=== PATIENT | female | born 1990 | race Caucasian/White ===

== ENCOUNTER 2017-07-26 18:52 | Emergency (ER) | payer MEDICAID, OTHER ==
[2017-07-26] MEDS ORDERED: Ketorolac INJ* 60 MG/2 ML VIAL IM ONE (19:23)
[2017-07-26] MEDS ORDERED: oxyCODONE/Acetamin 5/325 MG* TAB PO ONE (19:23)
--- NOTE | 2017-07-26 20:14 | RAD ---
INDICATION: Low back and left hip pain after fall down the stairs COMPARISON: Similar radiograph November 01, 2015 TECHNIQUE: 3 views of the left hip were obtained. FINDINGS: The visualized bones of the left hip are well-corticated and properly aligned. The joint spaces are normal. There is no radiographic evidence of acute fracture or dislocation. IMPRESSION: Normal radiograph of the left hip. If the patient's symptoms persist follow-up imaging is recommended.
--- NOTE | 2017-07-26 20:15 | RAD ---
INDICATION: Low back pain after a fall COMPARISON: None. TECHNIQUE: 5 views of the lumbar spine were obtained. FINDINGS: The vertebra are in normal alignment. No fracture is seen. Disc spaces appear maintained. . IMPRESSION: No evidence of fracture or subluxation.
--- NOTE | 2017-07-26 20:36 | ED ---
Giacomo Perez Thomas, scribed for Grayson Gould MD on 07/26/17 at 1936 . Lower Extremity - HPI Summary HPI Summary: The pt is a 27 y/o F presenting to the ED c/o L hip and midline lower back pain s/p falling down the stairs one week ago. The pain is constant. The pain is rated 7/10. The pain is aggravated by ambulation and palpation. It is alleviated by nothing. 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 Pt denies bladder incontinence. - History of Current Complaint Chief Complaint: EDHipPelvisInjury Stated Complaint: FALL/LT HIP/LOWER BACK PAIN Time Seen by Provider: 07/26/17 19:09 Hx Obtained From: Patient Mechanism Of Injury: Other - Fall down stairs Onset/Duration: Weeks - 1 Pain Intensity: 8 Pain Scale Used: 0-10 Numeric Timing: Constant Location: Is Discrete @ - L hip, midline lower back Associated Signs And Symptoms: Negative: Other - bladder incontinence Aggravating Factor(s): Ambulation, Other - Palpation Alleviating Factor(s): Nothing - Allergies/Home Medications Allergies/Adverse Reactions: Allergies Allergy/AdvReac Type Severity Reaction Status Date / Time Adhesive Tape Allergy Rash Verified 07/26/17 19:00 PMH/Surg Hx/FS Hx/Imm Hx Previously Healthy: No Endocrine/Hematology History: Denies: Hx Diabetes Cardiovascular History: Denies: Hx Congestive Heart Failure GI History: Denies: Other GI Disorders History: Reports: Hx Kidney Infection Denies: Hx Renal Disease, Other Problems/Disorders Musculoskeletal History: Reports: Hx Arthritis, Hx Back Problems, Other Musculoskeletal History - chronic pain Sensory History: Reports: Hx Contacts or Glasses Opthamlomology History: Reports: Hx Contacts or Glasses Neurological History: Reports: Other Neuro Impairments/Disorders - H/O SCIATICA Psychiatric History: Reports: Hx Anxiety, Hx Eating Disorder - Anorexia, Hx Depression, Hx of Violent Episodes Against Others, Other Psychiatric Issues/ Disorders - ADD - Immunization History Date of Tetanus Vaccine: Up to date Date of Influenza Vaccine: None Infectious Disease History: No Infectious Disease History: Denies: Traveled Outside the [place] in Last 30 Days - Family History Known Family History: Negative: Seizure Disorder - Social History Alcohol Use: None Hx Substance Use: No Substance Use Type: Reports: Marijuana Hx Tobacco Use: Yes Smoking Status (MU): Light Every Day Tobacco Smoker Type: Cigarettes Have You Smoked in the Last Year: Yes Review of Systems Negative: incontinence Positive: Other - L hip, midline lower back pain All Other Systems Reviewed And Are Negative: Yes Physical Exam - Summary Physical Exam Summary: VITAL SIGNS: Reviewed. GENERAL: Patient is a well-developed and nourished female who is lying comfortable in the stretcher. Patient is not in any acute respiratory distress. HEAD AND FACE: No signs of trauma. No ecchymosis, hematomas or skull depressions. No sinus tenderness. EYES: PERRLA, EOMI x 2, No injected conjunctiva, no nystagmus. EARS: Hearing grossly intact. Ear canals and tympanic membranes are within normal limits. MOUTH: Oropharynx within normal limits. NECK: Supple, trachea is midline, no adenopathy, no JVD, no carotid bruit, no c- spine tenderness, neck with full ROM. CHEST: Symmetric, no tenderness at palpation LUNGS: Clear to auscultation bilaterally. No wheezing or crackles. CVS: Regular rate and rhythm, S1 and S2 present, no murmurs or gallops appreciated. ABDOMEN: Soft, non-tender. No signs of distention. No rebound no guarding, and no masses palpated. Bowel sounds are normal. EXTREMITIES: The patient is tender to her left hip and lumbosacral spine. There is a positive left straight leg raise at 30 degrees. FROM in all major joints, no edema, no cyanosis or clubbing. NEURO: Alert and oriented x 3. No acute neurological deficits. Speech is normal and follows commands. The neuro exam of the back and extremities is normal. SKIN: Dry and warm Triage Information Reviewed: Yes Vital Signs On Initial Exam: Initial Vitals Temp Pulse Resp BP Pulse Ox 98.6 F 69 16 113/69 99 07/26/17 18:57 07/26/17 18:57 07/26/17 18:57 07/26/17 18:57 07/26/17 18:57 Vital Signs Reviewed: Yes - [place] Coma Scale Coma Scale Total: 15 Diagnostics - Vital Signs Vital Signs Temp Pulse Resp BP Pulse Ox 07/26/17 18:57 98.6 F 69 16 113/69 99 - Laboratory Lab Statement: Any lab studies that have been ordered have been reviewed, and results considered in the medical decision making process. - Radiology L-Spine XR Xray Interpretation: No Acute Changes - No evidence of fracture or subluxation. ED physician has reviewed this report and agrees. Radiology Interpretation Completed By: Radiologist Hip XR Xray Interpretation: No Acute Changes - Normal radiograph of the left hip. If the patient's symptoms persist follow-up imaging is recommended. ED physician has reviewed this report and agrees. Radiology Interpretation Completed By: Radiologist Lower Extremity Course/Dx - Course Assessment/Plan: The pt is a 27 y/o F presenting to the ED c/o L hip and midline lower back pain s/p falling down the stairs one week ago. The pain is constant. The pain is rated 7/10. The pain is aggravated by ambulation and palpation. It is alleviated by nothing. 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 Pt denies bladder incontinence. Radiographs of the L-Spine and Hip/Pelvis were negative for fracture or subluxation. The patient will be diagnosed with head pain and back pain. I recommended that the patient follow up with orthopedics. The patient will be discharged home to continue her Percocet and Naproxyn. - Diagnoses Provider Diagnoses: Back pain, Hip pain Discharge - Discharge Plan Condition: Stable Disposition: HOME Patient Education Materials: Back Pain (ED), Hip Pain (ED) Referrals: Andres Morales MD [Primary Care Provider] - 2 Days Additional Instructions: Follow up with orthopedist. Cont your current meds. Return to ED if worse. The documentation as recorded by the Giacomo guallpa Thomas accurately reflects the service I personally performed and the decisions made by , Grayson Gould MD.
[2017-07-26 20:40] VITALS: BP 107/65
== END 2017-07-26 20:39 | disposition home or self-care (01) ==
LOC: ED 18:52
DX: M54.5 Low back pain (principal); M25.552 Pain in left hip; W10.9XXA Fall (on) (from) unspecified stairs and steps, initial encounter; Y92.9 Unspecified place or not applicable; F17.210 Nicotine dependence, cigarettes, uncomplicated
CPT/HCPCS: 72110; 96372; 99282; A9270-GY; J1885

== ENCOUNTER 2018-02-24 12:54 | Emergency (ER) | payer OTHER ==
[2018-02-24 14:21] VITALS: BP 107/72
--- NOTE | 2018-02-24 18:07 | ED ---
Back Pain - HPI Summary HPI Summary: Patient is a 27-year-old female who presents emergency department for low back pain 3 days. Patient states she was helping her mom move furniture when she developed left low back pain later that evening. Pain radiates into left leg. She denies numbness, tingling or weakness to legs. Denies bowel or bladder incontinence or retention. Has had similar symptoms in the past. Has been taking anti-inflammatories with minimal relief. Symptoms are mild in severity. Movement makes symptoms worse. Nothing makes symptoms better. - History of Current Complaint Hx Obtained From: Patient Pain Intensity: 9 Pain Scale Used: 0-10 Numeric <Veto Tan - Last Filed: 02/24/18 18:04> <Grisel Lyman - Last Filed: 02/24/18 20:39> - History of Current Complaint Chief Complaint: EDBackInjuryPain Stated Complaint: BACK PAIN Time Seen by Provider: 02/24/18 13:16 - Allergies/Home Medications Allergies/Adverse Reactions: Allergies Allergy/AdvReac Type Severity Reaction Status Date / Time Adhesive Tape Allergy Rash Verified 07/26/17 19:00 PMH/Surg Hx/FS Hx/Imm Hx Previously Healthy: Yes Endocrine/Hematology History: Denies: Hx Diabetes Cardiovascular History: Denies: Hx Congestive Heart Failure GI History: Denies: Other GI Disorders History: Reports: Hx Kidney Infection Denies: Hx Renal Disease, Other Problems/Disorders Musculoskeletal History: Reports: Hx Arthritis, Hx Back Problems, Other Musculoskeletal History - chronic pain Sensory History: Reports: Hx Contacts or Glasses Opthamlomology History: Reports: Hx Contacts or Glasses Neurological History: Reports: Other Neuro Impairments/Disorders - H/O SCIATICA Psychiatric History: Reports: Hx Anxiety, Hx Eating Disorder - Anorexia, Hx Depression, Hx of Violent Episodes Against Others, Other Psychiatric Issues/ Disorders - ADD - Immunization History Date of Tetanus Vaccine: Up to date Date of Influenza Vaccine: None Infectious Disease History: No Infectious Disease History: Denies: Traveled Outside the [place] in Last 30 Days - Family History Known Family History: Positive: None Negative: Seizure Disorder Family History: R & n/C - Social History Alcohol Use: None Hx Substance Use: No Substance Use Type: Reports: None Hx Tobacco Use: Yes Smoking Status (MU): Light Every Day Tobacco Smoker Type: Cigarettes Have You Smoked in the Last Year: Yes <Veto Tan - Last Filed: 02/24/18 18:04> Review of Systems Genitourinary: Negative Positive: Other - left low back pain Negative: Weakness, Paresthesia, Numbness All Other Systems Reviewed And Are Negative: Yes <Veto Tan - Last Filed: 02/24/18 18:04> Physical Exam Triage Information Reviewed: Yes Vital Signs On Initial Exam: Initial Vitals Temp Pulse Resp BP Pulse Ox 96.8 F 67 16 111/69 98 02/24/18 13:09 02/24/18 13:09 02/24/18 13:09 02/24/18 13:09 02/24/18 13:09 Vital Signs Reviewed: Yes Appearance: Positive: Well-Appearing - Patient lying in bed in no acute distress. Skin: Positive: Warm, Dry Head/Face: Positive: Normal Head/Face Inspection Eyes: Positive: Normal Neck: Positive: Supple Abdomen Description: Positive: Nontender, Soft Musculoskeletal: Positive: Other - 5 out of 5 strength in bilateral lower extremities. Negative straight leg bilaterally. Pain on palpation to the left low lumbar spine and over the SI joint. Neurological: Positive: Normal, CN Intact II-III Psychiatric: Positive: Affect/Mood Appropriate <Veto Tan - Last Filed: 02/24/18 18:04> Vital Signs On Initial Exam: Initial Vitals Temp Pulse Resp BP Pulse Ox 96.8 F 67 16 111/69 98 02/24/18 13:09 02/24/18 13:09 02/24/18 13:09 02/24/18 13:09 02/24/18 13:09 <Grisel Lyman - Last Filed: 02/24/18 20:39> Diagnostics - Vital Signs Vital Signs Temp Pulse Resp BP Pulse Ox 02/24/18 14:19 98.3 F 58 16 107/72 98 02/24/18 13:09 96.8 F 67 16 111/69 98 <Veto Tan - Last Filed: 02/24/18 18:04> - Vital Signs Vital Signs Temp Pulse Resp BP Pulse Ox 02/24/18 14:19 98.3 F 58 16 107/72 98 02/24/18 13:09 96.8 F 67 16 111/69 98 <Grisel Lyman - Last Filed: 02/24/18 20:39> Back Pain Course/Dx - Course Course Of Treatment: Patient presenting with low back pain after moving furniture several days ago. She has no neurological deficits on exam or evidence of cauda equina syndrome. Will treat with naproxen and Flexeril. Advised to apply warm compresses to low back. Close follow-up with PCP if symptoms continue and return to the ER symptoms change or worsen. - Diagnoses Differential Diagnosis/HQI/PQRI: Positive: Herniated Disc, Strain <Veto Tan - Last Filed: 02/24/18 18:04> <Grisel Lyman - Last Filed: 02/24/18 20:39> - Diagnoses Provider Diagnoses: Back pain, sacroiliac Discharge - Sign-Out/Discharge Documenting (check all that apply): Discharge/Admit/Transfer - Billing Disposition and Condition Condition: GOOD Disposition: Home <Veto Tan - Last Filed: 02/24/18 18:04> - Billing Disposition and Condition Condition: GOOD Disposition: Home <Grisel Lyman - Last Filed: 02/24/18 20:39> - Discharge Plan Condition: Good Disposition: HOME Prescriptions: Cyclobenzaprine TAB* [Flexeril 10 MG TAB*] 10 mg PO TID PRN #12 tab PRN Reason: Pain Naproxen [Naproxen 500 mg tab] 500 mg PO Q12H #20 tablet Patient Education Materials: Sacroiliitis (ED) Referrals: Andres Morales MD [Primary Care Provider] - Additional Instructions: Schedule a follow up appointment with your PCP Take medications as directed Apply warm compresses to back Return to ER if symptoms change or worsen Attestation Statement User Type: Provider - I was available for consult. This patient was seen by the ROBERT. The patient was not presented to, seen by, or examined by me. -Mary <Grisel Lyman - Last Filed: 02/24/18 20:39>
== END 2018-02-24 14:19 | disposition home or self-care (01) ==
LOC: ED 12:54
DX: M54.5 Low back pain (principal); M46.1 Sacroiliitis, not elsewhere classified; F98.8 Other specified behavioral and emotional disorders with onset usually occurring in childhood and adolescence; F41.9 Anxiety disorder, unspecified; F32.9 Major depressive disorder, single episode, unspecified; Z91.048 Other nonmedicinal substance allergy status; F17.210 Nicotine dependence, cigarettes, uncomplicated
CPT/HCPCS: 99282

== ENCOUNTER 2018-09-22 16:40 | Emergency (ER) | payer OTHER ==
[2018-09-22] MEDS ORDERED: oxyCODONE/Acetamin 5/325 MG* TAB PO ONE (17:12)
[2018-09-22] MEDS ORDERED: Penicillin VK TAB* 250 MG PO ONE (17:12)
--- NOTE | 2018-09-22 17:17 | ED ---
Throat Pain/Nasal Congestion - HPI Summary HPI Summary: A 28 y/o female presents to the ED c/o lower jaw pain reaching 7/10 in severity. As per triage, "c/o jaw pain, hurts to talk. starts in front lower jaw , but has started radiating to left ear. states she has bad taste in mouth. second episode in two weeks, first one resolved on own. denies any injury/trauma ". According to the patient, she has been experiencing intense pain from the front of her jaw that is radiating outwards since 2200 last night. She stated that she cannot sleep or eat without pain. She noted that she has a headache and ear ache. She stated that she is not sure if her teeth are hurting. PMHx of back and hip problems. Patient takes Zoloft and Adderral. LKMP was 3 weeks ago. Patient is in obvious pain distress and is tearful. Patient has dentist appointment on 10/04/2018. Home Medications Medication Instructions Recorded Confirmed Type Sertraline* [Zoloft*] 200 mg PO DAILY 04/09/13 09/22/18 History Amphetamine MIXED SALT TAB* 30 mg PO BID PRN 02/20/16 09/22/18 History [Adderall TAB*] Naproxen TAB* [Naprosyn 250 mg 500 mg PO BID PRN 02/25/18 09/22/18 History TAB*] Norgestimate-Ethinyl Estradiol 1 tab PO DAILY 09/22/18 09/22/18 History [Tri-Sprintec 0.18/0.215/0.25 mg-35 Mcg] Varenicline (NF) [Chantix 1 MG TAB 1 mg PO DAILY 09/22/18 09/22/18 History (NF)] - History of Current Complaint Chief Complaint: EDDentalPain Time Seen by Provider: 09/22/18 17:07 Hx Obtained From: Patient Onset/Duration: Sudden Onset, Still Present Severity: Moderate - 7/10 Associated Signs And Symptoms: Positive: Negative Cough: None - Allergies/Home Medications Allergies/Adverse Reactions: Allergies Allergy/AdvReac Type Severity Reaction Status Date / Time Adhesive Tape Allergy Rash Verified 09/22/18 16:59 banana Allergy GI Upset Verified 09/22/18 16:59 Home Medications: Home Medications Norgestimate-Ethinyl Estradiol [Tri-Sprintec 0.18/0.215/0.25 mg-35 Mcg] 1 tab PO DAILY 09/22/18 [History Confirmed 09/22/18] Varenicline (NF) [Chantix 1 MG TAB (NF)] 1 mg PO DAILY 09/22/18 [History Confirmed 09/22/18] PMH/Surg Hx/FS Hx/Imm Hx Endocrine/Hematology History: Denies: Hx Diabetes Cardiovascular History: Denies: Hx Congestive Heart Failure GI History: Denies: Other GI Disorders History: Reports: Hx Kidney Infection Denies: Hx Renal Disease, Other Problems/Disorders Musculoskeletal History: Reports: Hx Arthritis, Hx Back Problems, Other Musculoskeletal History - chronic pain Sensory History: Reports: Hx Contacts or Glasses Opthamlomology History: Reports: Hx Contacts or Glasses Neurological History: Reports: Other Neuro Impairments/Disorders - H/O SCIATICA Psychiatric History: Reports: Hx Anxiety, Hx Eating Disorder - Anorexia, Hx Depression, Hx of Violent Episodes Against Others, Other Psychiatric Issues/ Disorders - ADD - Surgical History Surgery Procedure, Year, and Place: none - Immunization History Date of Tetanus Vaccine: Up to date Date of Influenza Vaccine: None Infectious Disease History: No Infectious Disease History: Denies: Traveled Outside the [place] in Last 30 Days - Family History Known Family History: Negative: Seizure Disorder Family History: R & n/C - Social History Alcohol Use: None Hx Substance Use: No Substance Use Type: Reports: None Hx Tobacco Use: Yes Smoking Status (MU): Light Every Day Tobacco Smoker Type: Cigarettes Have You Smoked in the Last Year: Yes Review of Systems Negative: Fever Positive: Ear Ache Positive: Headache All Other Systems Reviewed And Are Negative: Yes Physical Exam - Summary Physical Exam Summary: Appearance: Well-appearing, Well-nourished, lying in bed comfortable Skin: Warm, dry, no obvious rash Eyes: sclera anicteric, no conjunctival pallor ENT: mucous membranes moist. Tenderness to palpation of the left lower incisors , no swelling. Neck: deferred Respiratory: No signs of respiratory distress Cardiovascular: Appears well perfused, pulses are nml Abdomen: deferred Musculoskeletal: Moving all 4 extremities without obvious discomfort Neurological: Awake and alert, mentation is normal, speech is fluent and appropriate Psychiatric: affect is normal, does not appear anxious or depressed Triage Information Reviewed: Yes Vital Signs On Initial Exam: Initial Vitals Temp Pulse Resp BP Pulse Ox 98.1 F 124 16 125/107 99 09/22/18 16:55 09/22/18 16:55 09/22/18 16:55 09/22/18 16:55 09/22/18 16:55 Vital Signs Reviewed: Yes Diagnostics - Vital Signs Vital Signs Temp Pulse Resp BP Pulse Ox 09/22/18 16:55 98.1 F 124 16 125/107 99 - Laboratory Lab Statement: Any lab studies that have been ordered have been reviewed, and results considered in the medical decision making process. EENT Course/Dx - Course Course Of Treatment: A 28 y/o female presents to the ED c/o lower jaw pain reaching 7/10 in severity. According to the patient, she has been experiencing intense pain from the front of her jaw that is radiating outwards since 2200 last night. She stated that she cannot sleep or eat without pain. She noted that she has a headache and ear ache. She stated that she is not sure if her teeth are hurting. No laboratory scans were done. No laboratory screens were done. In the ED course, the patient received Percocet and Penicillin. Patient will be discharged with a diagnosis of dental abscess. Patient was advised that if this is a typical dental infection/abscess, it should start improving over the next couple of days, and in that case it would be fine to wait for her scheduled dental appt. If it is not improving, patient should see the dentist sooner. Patient is to return to ED for any new or worsening symptoms. Patient is agreeable with this plan. - Diagnoses Provider Diagnoses: Dental abscess Discharge - Sign-Out/Discharge Documenting (check all that apply): Patient Departure - DISCHARGE - Discharge Plan Condition: Good Disposition: HOME Prescriptions: Penicillin VK TAB* [Penicillin VK 250 mg Tab*] 500 mg PO QID #40 tab Patient Education Materials: Dental Abscess (ED) Referrals: Andres Morales MD [Primary Care Provider] - Additional Instructions: If this is a typical dental infection/abscess, it should start improving over the next couple of days, and in that case it would be fine to wait for your dental appt. If it is not improving, you should see the dentist sooner. RETURN TO ED FOR ANY NEW OR WORSENING SYMPTOMS. - Billing Disposition and Condition Condition: GOOD Disposition: Home - Attestation Statements Document Initiated by Scribe: Yes Documenting Scribe: Eyad Roach Provider For Whom Octavioibabran is Documenting (Include Credential): Vamshi Malhotra MD Scribe Attestation: I, Eyad Roach, scribed for Vamshi Malhotra MD on 09/22/18 at 1946. Scribe Documentation Reviewed: Yes Provider Attestation: The documentation as recorded by the octavioibeEyad accurately reflects the service I personally performed and the decisions made by me, Vamshi Malhotra MD Status of Scribe Document: Viewed
[2018-09-22 18:17] VITALS: BP 126/84
== END 2018-09-22 18:46 | disposition home or self-care (01) ==
LOC: ED 16:40
DX: K04.7 Periapical abscess without sinus (principal); F17.210 Nicotine dependence, cigarettes, uncomplicated; F32.9 Major depressive disorder, single episode, unspecified; F41.9 Anxiety disorder, unspecified; F98.8 Other specified behavioral and emotional disorders with onset usually occurring in childhood and adolescence
CPT/HCPCS: 99282; A9270-GY

== ENCOUNTER 2018-10-20 20:34 | Emergency (ER) | payer OTHER ==
--- OUTSIDE RECORDS SUMMARY | 2018-10-20 20:52 | XMS REPORT | Continuity of Care Document ---
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 [place] HIV 1 2 Antibody Nonreactive Nonreactive 20 Urine Culture And 04/09/2013 [facility] [place] Urine Culture (SEE NOTE) 21 Sensitivities CBC Auto Diff 04/09/2013 [facility] [place] White Blood 12.0 10^3/uL High 4.8-10.8 Count Red Blood Count 4.16 10^6/uL 4.0-5.4 Hemoglobin 13.3 g/dL 12.0-16.0 Hematocrit 41 % 35-47 Mean Corpuscular Volume 97 fL 80-97 Mean Corpuscular Hemoglobin 32 pg High 27-31 Mean Corpuscular HGB Conc 33 g/dL 31-36 Red Cell Distribution Width 13 % 10.5-15 Platelet Count 206 10^3/uL 150-450 Mean Platelet Volume 8 um3 7.4-10.4 Abs Neutrophils 9.0 10^3/uL High 1.5-7.7 Abs Lymphocytes 1.6 10^3/uL 1.0-4.8 Abs Monocytes 1.3 10^3/uL High 0-0.8 Abs Eosinophils 0 10^3/uL 0-0.6 Abs Basophils 0 10^3/uL 0-0.2 Abs Nucleated RBC 0 10^3/uL Granulocyte % 75.1 % 38-83 Lymphocyte % 13.3 % Low 25-47 Monocyte % 11.2 % High 1-9 Eosinophil % 0.2 % 0-6 Basophil % 0.2 % 0-2 Nucleated Red Blood Cells % 0 Clotest 10/29/2012 [facility] [place] Clotest (SEE NOTE) 22 Lipid Profile 08/20/2011 Bermudez Morenita (Fma) Cholesterol 149 mg/dL 120- 200 HDL 51 mg/dL 30-85 Triglycerides 50 mg/dL 30-200 HDL Risk Factor 2.9 CALC 0.0-4.0 LDL (Calculated) 88 CALC 0-129 VLDL (Calculated) 10 mg/dL 0-50 Comprehensive Metabolic 08/20/2011 Aidan Xavier (a) Albumin 4.4 g/dL 3.8-5.5 Prof Alk. Phos. 61 U/L 30-110 Alt (SGPT) 13 U/L 7-35 Ast (Sgot) 15 U/L 5-34 BUN 26 mg/dL 6-26 Calcium 9.7 mg/dL 8.6-10.2 Chloride 106 mEq/L 94-112 Creatinine 0.8 mg/dL 0.6-1.4 Carbon Dioxide 23 mEq/L 21-32 Glucose 102 mg/dL 70-105 Sodium 137 mEq/L 134-149 Total Bilirubin 0.2 mg/dL 0.2-1.3 Total Protein 7.1 g/dL 6.3-8.1 Potassium 4.5 mEq/L 3.6-5.5 Globulin 2.7 g/dL 2.0-4.8 A/G Ratio 1.7 Calc 0.6-2.2 BUN/Creat Ratio 32.5 Calc 8.0-36.0 1 Negative <1:80 Borderline 1:80 Positive >1:80 2 IgG titers if 1:64 or greater indicate exposure or acute and convalescent samples showing a four-fold increase, and/or the presence of IgM indicate recent or current infection. This test was developed and its performance characteristics determined by [facility]. It has not been cleared or approved by the U.S. Food and Drug Administration. The FDA has determined that such clearance or approval is not necessary. This test is used for clinical purposes. It should not be regarded as investigational or for research. 3 HGE IgG levels are detectable 7 to 10 days post infection and persist approximately one year. This test was developed and its performance characteristics determined by [facility]. It has not been cleared or approved by the U.S. Food and Drug Administration. The FDA has determined that such clearance or approval is not necessary. This test is used for clinical purposes. It should not be regarded as investigational or for research. 4 IgM levels usually rise 3 to 5 days post infection and fall to normal levels in approximately 30 to 60 days. This test was developed and its performance characteristics determined by [facility]. It has not been cleared or approved by the U.S. Food and Drug Administration. The FDA has determined that such clearance or approval is not necessary. This test is used for clinical purposes. It should not be regarded as investigational or for research. 5 Negative <0.91 Equivocal 0.91 - 1.09 Positive >1.09 Please note reference interval change 6 Negative <0.80 Equivocal 0.80 - 1.19 Positive >1.19 IgM levels may peak at 3-6 weeks post infection, then gradually decline. 7 NASOPHARYNGEAL SWAB 8 Laboratory developed test. Test Performed by: [place] [address] [employer] T[employer]: Hany Brock III, M.D. 9 Negative <0.91 Equivocal 0.91 - 1.09 Positive >1.09 Please note reference interval change 10 Negative <0.80 Equivocal 0.80 - 1.19 Positive >1.19 IgM levels may peak at 3-6 weeks post infection, then gradually decline. Please note reference interval change 11 Acute inflammation: >10.00 12 Because ethnic data is not always readily available, this report includes an eGFR for both -Americans and non- Americans. The National Kidney Disease Education Program (NKDEP) does not endorse the use of the MDRD equation for patients that are not between the ages of 18 and 70, are , have extremes of body size, muscle mass, or nutritional status, or are non- or non-. According to the National Kidney Foundation, irrespective of diagnosis, the stage of the disease is based on the level of kidney function: Stage Description GFR(mL/min/1.73 m(2)) 1 Kidney damage with normal or decreased GFR 90 2 Kidney damage with mild decrease in GFR 60-89 3 Moderate decrease in GFR 30-59 4 Severe decrease in GFR 15-29 5 Kidney failure <15 (or dialysis) 13 RUN DATE: 03/19/14 [facility] LAB LIVE PAGE 1 RUN TIME: [address] [place] [address] Specimen Inquiry Name: JANIS VIEYRA : [address]: Phillip Ricketts MD Acct: [id number] Unit: [id number] AGE: 24 Location: ED Re03/19/14 SEX: F Status: REG ER SPEC: [id number] JOVANNA: 03/19/14-[address] [facility] [address]: Phillip Ricketts MD REQ: [id number] RECD: 03/19/14 STATUS: RES OTHR DR: Andres Morales MD _ SOURCE: THROAT SPDESC: ORDERED: Rapid Strep A, Throat Beta Str QUERIES: Medent Number Procedure Result Verified Site Rapid Strep A Final 03/19/14- 210 ML Organism 1 Negative Strep Group A Antigen testing by enzyme immunoassay. The food manager and regulatory agencies both recommend that a throat culture for beta strep be performed if a Rapid Group A Strep assay yields a negative result. Therefore a culture will be automatically performed on all negative samples. Throat Beta Strep Culture PENDING END OF REPORT * ML=Testing performed at Main Lab DEPARTMENT OF PATHOLOGY, [facility] [employer] [place] [address] Stiven Rocha M.D. Director [facility] # [id number] 14 RUN DATE: 03/21/14 [facility] LAB LIVE PAGE 1 RUN TIME: 811 [facility] [employer] [place], [place] [address] Specimen Inquiry Name: JANIS VIEYRA : [address]: Phillip Ricketts MD Acct: [id number] Unit: [id number] AGE: 24 Location: ED Re03/19/14 SEX: F Status: DEP ER SPEC: [id number] JOVANNA: 03/19/[address]: Phillip Ricketts MD REQ: [id number] RECD: 03/19/14 STATUS: MARIELY RODRIGUEZ DR: Andres Morales MD _ SOURCE: THROAT SPDESC: ORDERED: Rapid Strep A, Throat Beta Str QUERIES: Medent Number Procedure Result Verified Site Rapid Strep A Final 03/19/14- 2109 ML Organism 1 Negative Strep Group A Antigen testing by enzyme immunoassay. The food manager and regulatory agencies both recommend that a throat culture for beta strep be performed if a Rapid Group A Strep assay yields a negative result. Therefore a culture will be automatically performed on all negative samples. Throat Beta Strep Culture Final 03/21/14- 0812 ML Negative For Group A Beta Streptococcus END OF REPORT * ML=Testing performed at Main Lab DEPARTMENT OF PATHOLOGY, [address] [place] [address] Stiven Rocha M.D. Director [facility] # [id number] 15 This test detects intact HCG only and is indicated for the early detection of . 16 The following test(s) has been cancelled with a brief explanation for the cancellation: CHLAMYDIA / GC RECOLLECTED CLEANING SWAB SENT CLIENT NOTIFIED 17 [facility], [place]. DEPARTMENT OF PATHOLOGY or Extension 9330 SUBSTATION SUPERVISOR CYTOLOGY REPORT Patient: JANIS VIEYRA : 1990 AGE: 23 Y SEX: F Acct: [id number] Procedure Date: 09/12/2013 Date Received: 09/13/2013 Requesting Provider: SASHA SHEPPARD NP Location: [facility] [place] Case No. [id number] Requisition #: [id number] CYTOLOGIC INTERPRETATION: SPECIMEN ADEQUACY SATISFACTORY FOR EVALUATION, ENDOCERVICAL TRANSFORMATION ZONE COMPONENT PRESENT GENERAL CATEGORIZATION NEGATIVE FOR INTRAEPITHELIAL LESIONS OR MALIGNANCY RECOMMENDATIONS Refer to the corresponding web sites for 2012 updated general recommendation guidelines of U.S. preventive service task force for cervical cancer screening, and www.asccp.org//eowgycivz5550. COMMENTS Thin Prep Pap tests are examined with an FDA approved location-guidance system. PATIENT DATA: SPECIMEN SUBMITTED: * * (HPVII) THIN PREP W/HPV (LSIL/ASC/TOSHA) * * ENDOCERVICAL RELEVANT HISTORY: LMP: 09/02/2013 Prev.normal: 2010 ADDITIONAL COPIES SENT TO: Screened/Rescreened Electronically Signed Sign Out Date/Time: by: by: KALYAN FAN(ASCP) 09/13/2013 13:27 Note: The Pap smear is a screening test designed to aid in the detection of premalignant and malignant conditions of the uterine cervix. It is not a diagnostic procedure and should not be used as the sole means of detecting cervical cancer. Both false-positive and false-negative reports do occur. 00 UA Pap Smear performed at [facility] Dir: [place], [address] [place] [id number] 01 hvac engineer [facility] [place] Dir: Winston Oliver MD, [address] [facility] [phone] 02 Lab [facility] [place] Dir: Phillip Newton MD, [address] [place] [phone] For inquiries regarding HPV test results, the physician may contact Lab Sara: [phone] . 18 Because ethnic data is not always readily available, this report includes an eGFR for both -Americans and non- Americans. The National Kidney Disease Education Program (NKDEP) does not endorse the use of the MDRD equation for patients that are not between the ages of 18 and 70, are , have extremes of body size, muscle mass, or nutritional status, or are non- or non-. According to the National Kidney Foundation, irrespective of diagnosis, the stage of the disease is based on the level of kidney function: Stage Description GFR(mL/min/1.73 m(2)) 1 Kidney damage with normal or decreased GFR 90 2 Kidney damage with mild decrease in GFR 60-89 3 Moderate decrease in GFR 30-59 4 Severe decrease in GFR 15-29 5 Kidney failure <15 (or dialysis) 19 It is recognized that currently available assays for the detection of antibodies to HIV-1 and/or HIV-2 may not detect all infected individuals. HIV antibodies may be undetectable in some stages of the infection and in some clinical conditions. The performance of this assay has not been established for populations of infants or children. Assayed by Chemiluminescence Microparticle Immunoassay on the Siemens Advia Centaur CP. Values obtained with different methods or kits cannot be used interchangeably.The diagnostic specificity of the ADVIA Centaur 1/O/2 Enhanced assay in the low risk population was 99.90% (6052/6058) with a 95% confidence interval of 99.78 to 99.96%. 20 It is recognized that currently available assays for the detection of antibodies to HIV-1 and/or HIV-2 may not detect all infected individuals. HIV antibodies may be undetectable in some stages of the infection and in some clinical conditions. The performance of this assay has not been established for populations of infants or children. Assayed by Chemiluminescence Microparticle Immunoassay on the Siemens Advia Centaur CP. Values obtained with different methods or kits cannot be used interchangeably.The diagnostic specificity of the ADVIA Centaur 1/O/2 Enhanced assay in the low risk population was 99.90% (6052/6058) with a 95% confidence interval of 99.78 to 99.96%. 21 RUN DATE: 04/11/13 [facility] LAB LIVE PAGE 1 RUN TIME: [address] [place] [address] Specimen Inquiry Name: JANIS VIEYRA : [address]: Delmy Stanford MD Acct: [id number] Unit: [id number] AGE: 23 Location: ED Re04/09/13 SEX: F Status: DEP ER SPEC: [id number] JOVANNA: 04/09/13-[address]: Wesley SANTOROQ: [id number] RECD: 04/09/13 STATUS: MARIELY RODRIGUEZ DR: [facility] Andres Morales MD _ SOURCE: URINE SPDESC: ORDERED: Urine Culture Procedure Result Verified Site Urine Culture Final 04/11/13- 0853 ML Organism 1 ESCHERICHIA COLI [place] Count 25-50,000 (Moderate) CFU/ML 1. ESCHERICHIA COLI M.I.C. RX --------- ------ Ampicillin <=2 S Cefazolin <=4 S Cefepime <=1 S Ceftriaxone <=1 S Ciprofloxacin <=0.25 S Gentamicin <=1 S Imipenem <=0.25 S Levofloxacin <=0.12 S Meropenem <=0.25 S Nitrofurantoin <=16 S Tetracycline <=1 S Pipercillin/Tazobactam <=4 S Trimethoprim/Sulfamethoxazole <=20 S Amoxicillin/Clavulanic Acid <=2 S Aztreonam <=1 S Contact the Microbiology Department for any additional antibiotic reporting. END OF REPORT * ML=Testing performed at Main Lab DEPARTMENT OF PATHOLOGY, [facility] [employer] [place] [address] Stiven Rocha M.D. Director [facility] Permit #[id number] 22 RUN DATE: 10/31/12 [facility] LAB LIVE PAGE 1 RUN TIME: [address] [place] [address] Specimen Inquiry Name: JANIS VIEYRA : [address]: Renrad Ring MD Acct: [id number] Unit: [id number] AGE: 22 Location: ENDO Re10/29/12 SEX: F Status: REG REF SPEC: [id number] JOVANNA: 10/29/12-[address] [facility] [address]: Renard Ring MD REQ: [id number] RECD: 10/30/12 STATUS: MARIELY RODRIGUEZ DR: Andres Morales MD _ SOURCE: CLOTEST [facility]: ORDERED: Clotest COMMENTS: ANTRAL BX Procedure Result Verified Site Clotest Final 10/31/12- 842 ML Clotest Negative END OF REPORT * ML=Testing performed at Main Lab DEPARTMENT OF PATHOLOGY, [address] [place] [address] Stiven Rocha M.D. 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, predom inattentive type Office Visit 11/15/2015 1:50p Main Office Andres Acevedo G89.4 Chronic pain Marine Morales syndrome Office Visit 11/01/2015 4:50p Main Office Andres Acevedo M25.552 Pain in left hip Marine Morales Office Visit 10/29/2015 10:45a Main Office Virgen Lawson.7 Fibromyalgia [place], Afnp-C Office Visit 09/24/2015 2:00p Main Office Renny Bates.7 Fibromyalgia LABORATORY SUPERVISOR Office Visit 08/10/2015 1:00p Main Office Renny Btaes.7 Fibromyalgia LABORATORY SUPERVISOR Office Visit 01/04/2015 6:30p Main Office Andres Acevedo 724.3 Sciatica Marine Morales 311 Depressive Disorder Not Elsewhere Spec 314.00 Attention Deficit Disorder W/O Mention Of Hyperactivity Office Visit 12/27/2014 1:40p Main Office Eris Hung M.D. 724.2 Lumbago Office Visit 10/20/2014 11:15a Main Office Tomeka Samaniego, 719.49 Pain Joint Multiple LABORATORY SUPERVISOR Sites Office Visit 05/30/2014 10:20a Main Office Andres Acevedo 465.9 URI Alicia Morales M.D. Respiratory Infections Acute Unspec Sites 473.8 Sinusitis Chronic Other 944.21 Burn One Digit Exc Thumb (2ND Deg) v06.5 Tetanus Diphtheria (DT) Office Visit 05/15/2014 1:45p Main Office Sasha Sheppard NP 784.0 Headache 783.21 Loss Of Weight 311 Depressive Disorder Not Elsewhere Spec Office Visit 04/04/2014 1:45p Main Office Melanie Ferrer, 462 Pharyngitis Acute Afnp-C 461.0 Sinusitis Acute Maxillary Office Visit 01/05/2014 5:30p Main Office Andres Acevedo 314.00 Attention Deficit Marine Morales Disorder W/O Mention Of Hyperactivity 311 Depressive Disorder Not Elsewhere Spec 783.21 Loss Of Weight Office Visit 09/12/2013 12:45p Main Office Sasha Sheppard, V72.31 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 V25.09 Contraceptive Management Other 314.00 Attention Deficit Disorder W/O Mention Of Hyperactivity 311 Depressive Disorder Not Elsewhere Spec 620.2 Ovarian Cyst Other & Unspec 448.1 Nevus Non-Neoplastic Office Visit 03/31/2013 6:00p Main Office Andres Acevedo 314.00 Attention Deficit Marine Morales Disorder W/O Mention Of Hyperactivity 311 Depressive Disorder Not Elsewhere Spec Office Visit 11/22/2012 7:00p Main Office Tomeka Samaniego, 787.01 Nausea W/ Vomiting LABORATORY SUPERVISOR Office Visit 09/23/2012 4:10p Main Office Andres Acevedo 314.00 Attention Deficit Marine Morales Disorder W/O Mention Of Hyperactivity 311 Depressive Disorder Not Elsewhere Spec 787.01 Nausea W/ Vomiting Office Visit 03/04/2012 4:00p Main Office Andres Acevedo 314.00 Attention Deficit Marine Morales Disorder W/O Mention Of Hyperactivity 311 Depressive Disorder Not Elsewhere Spec Office Visit 04/22/2011 1:40p Main Office Ange Rizvi 724.2 Sierra Grant M.D. Office Visit 01/16/2011 1:40p Main Office Andres Morales, 311 Depressive Disorder M.D. Not Elsewhere Spec 314.00 Attention Deficit Disorder W/O Mention Of Hyperactivity V58.69 Medications Snf (Current) Use Of Other Medication Office Visit 09/05/2010 1:00p Main Office Andres Morales, 311 Depressive Disorder M.D. Not Elsewhere Spec 314.00 Attention Deficit Disorder W/O Mention Of Hyperactivity Office Visit 04/17/2010 8:30a [facility] Andres Acevedo 311 Depressive Carmen, MJensDJens Disorder Not Elsewhere Spec 314.00 Attention Deficit Disorder W/O Mention Of Hyperactivity Office Visit 02/13/2010 2:00p [facility] Andres Acevedo 311 Depressive Carmen, MJensD. Disorder Not Elsewhere Spec 314.00 Attention Deficit Disorder W/O Mention Of Hyperactivity Plan of Treatment Future Appointment(s):11/09/2018 12:00 pm - FOSTER Eason at Main Fwmgaj2610/18/2018 - CELESTE EasonPM25.552 Pain in left hipNew Medication: Naproxen 500 mg - 1 by mouth twice a day with foodCyclobenzaprine HCL 10 mg - take one tablet by mouth twice a day as needed painDiclofenac Sodium 1 % - apply 2 grams to painful area (multiple) up to 4 times daily as rkmttoP70.551 Pain in right hipM54.30 Sciatica, unspecified sideR53.1 WeaknessAllComments:~B_~ U_Medication Management~b_~u_ Patient Understands medications he 's taking? Yes No Are there Barriers to Adherence? Yes No Has the patient been asked about herbal supplements and therapies, and OTC meds? Yes No As always, we strongly encourage a healthy diet and makingphysical activity a part of your every day life. If you have questions about how or where to start, please contact the office.
[2018-10-20] MEDS ORDERED: oxyCODONE/Acetamin 5/325 MG* TAB PO ONE (21:50)
[2018-10-20] MEDS ORDERED: Ketorolac INJ* 30 MG/ML 1 ML VIAL IM ONE (21:50)
--- NOTE | 2018-10-20 21:51 | ED ---
Back Pain - HPI Summary HPI Summary: This patient is a 28 year old F presenting to [facility] with a chief complaint of acute on chronic back and bilateral hip pain that began 5 days ago. The patient rates the pain 7/10 in severity. Symptoms aggravated by nothing. Symptoms alleviated by nothing. Patient denies urinary symptoms. - History of Current Complaint Chief Complaint: EDBackInjuryPain Stated Complaint: BACK/HIP PAIN Time Seen by Provider: 10/20/18 20:40 Hx Obtained From: Patient Onset/Duration: Sudden Onset, Lasting Days, Still Present Onset/Duration: Started Days Ago, Atraumatic, Still Present Timing: Constant Back Pain Location: Is Diffuse Severity Initially: Moderate Severity Currently: Moderate Pain Intensity: 7 Pain Scale Used: 0-10 Numeric Aggravating Symptom(s): Nothing Alleviating Symptom(s): Nothing Associated Signs And Symptoms: Negative: Bladder Incontinence - Allergies/Home Medications Allergies/Adverse Reactions: Allergies Allergy/AdvReac Type Severity Reaction Status Date / Time Adhesive Tape Allergy Rash Verified 10/20/18 20:46 banana Allergy GI Upset Verified 10/20/18 20:46 PMH/Surg Hx/FS Hx/Imm Hx Previously Healthy: No Endocrine/Hematology History: Denies: Hx Diabetes Cardiovascular History: Denies: Hx Congestive Heart Failure GI History: Denies: Other GI Disorders History: Reports: Hx Kidney Infection Denies: Hx Renal Disease, Other Problems/Disorders Musculoskeletal History: Reports: Hx Arthritis, Hx Back Problems, Other Musculoskeletal History - chronic pain Sensory History: Reports: Hx Contacts or Glasses Opthamlomology History: Reports: Hx Contacts or Glasses Neurological History: Reports: Other Neuro Impairments/Disorders - H/O SCIATICA Psychiatric History: Reports: Hx Anxiety, Hx Eating Disorder - Anorexia, Hx Depression, Hx of Violent Episodes Against Others, Other Psychiatric Issues/ Disorders - ADD - Surgical History Surgery Procedure, Year, and Place: none - Immunization History Date of Tetanus Vaccine: Up to date Date of Influenza Vaccine: None Infectious Disease History: No Infectious Disease History: Denies: Traveled Outside the [place] in Last 30 Days - Family History Known Family History: Negative: Seizure Disorder - Social History Occupation: Unemployed Lives: Alone Alcohol Use: None Hx Substance Use: No Substance Use Type: Reports: None Hx Tobacco Use: Yes Smoking Status (MU): Light Every Day Tobacco Smoker Type: Cigarettes Have You Smoked in the Last Year: Yes Review of Systems Positive: no symptoms reported Positive: Other - Positive back pain All Other Systems Reviewed And Are Negative: Yes Physical Exam - Summary Physical Exam Summary: VITAL SIGNS: Reviewed. GENERAL: Patient is a well-developed and nourished female who is lying comfortable in the stretcher. Patient is not in any acute respiratory distress. HEAD AND FACE: No signs of trauma. No ecchymosis, hematomas or skull depressions. No sinus tenderness. EYES: PERRLA, EOMI x 2, No injected conjunctiva, no nystagmus. EARS: Hearing grossly intact. Ear canals and tympanic membranes are within normal limits. MOUTH: Oropharynx within normal limits. NECK: Supple, trachea is midline, no adenopathy, no JVD, no carotid bruit, no c- spine tenderness, neck with full ROM. CHEST: Symmetric, no tenderness at palpation LUNGS: Clear to auscultation bilaterally. No wheezing or crackles. CVS: Regular rate and rhythm, S1 and S2 present, no murmurs or gallops appreciated. ABDOMEN: Soft, non-tender. No signs of distention. No rebound no guarding, and no masses palpated. Bowel sounds are normal. EXTREMITIES: FROM in all major joints, no edema, no cyanosis or clubbing. MUSCULOSKELETAL: Tenderness over the lower lumbar sacral spine. NEURO: Alert and oriented x 3. No acute neurological deficits. Speech is normal and follows commands. SKIN: Dry and warm Triage Information Reviewed: Yes Vital Signs On Initial Exam: Initial Vitals Temp Pulse Resp BP Pulse Ox 98.3 F 78 16 124/79 97 10/20/18 20:42 10/20/18 20:42 10/20/18 20:42 10/20/18 20:42 10/20/18 20:42 Vital Signs Reviewed: Yes Diagnostics - Vital Signs Vital Signs Temp Pulse Resp BP Pulse Ox 10/20/18 20:42 98.3 F 78 16 124/79 97 - Laboratory Lab Statement: Any lab studies that have been ordered have been reviewed, and results considered in the medical decision making process. Back Pain Course/Dx - Course Course Of Treatment: This patient is a 28 year old F presenting to [facility] with a chief complaint of acute on chronic back and bilateral hip pain that began 5 days ago. Physical Exam Findings: Tenderness over the lower lumbar sacral spine. In the ED course the patient was given Toradol and Percocet. Patient will be discharged with follow up from orthopedics and PCP. The patient is agreeable with this plan. - Diagnoses Provider Diagnoses: Back pain Discharge - Sign-Out/Discharge Documenting (check all that apply): Patient Departure - Discharge home Patient Received Moderate/Deep Sedation with Procedure: No - Discharge Plan Condition: Stable Disposition: HOME Patient Education Materials: Back Pain (ED) Referrals: Andres Morales MD [Primary Care Provider] - 2 Days Sriram Last MD [Medical Doctor] - 2 Days Additional Instructions: RETURN TO THE EMERGENCY DEPARTMENT FOR NEW OR WORSENING SYMPTOMS - Attestation Statements Document Initiated by Scribe: Yes Documenting Scribe: Elisa Perez Provider For Whom Scribe is Documenting (Include Credential): Dr. Grayson Gould MD Scribe Attestation: Elisa Peerz, scribed for Dr. Grayson Gould MD on 10/20/18 at [id number]. Status of Scribe Document: Ready
[2018-10-20 23:38] VITALS: BP 117/88
== END 2018-10-20 23:40 | disposition home or self-care (01) ==
LOC: ED 20:34
DX: M54.5 Low back pain (principal); M25.552 Pain in left hip; M25.551 Pain in right hip; Z88.8 Allergy status to other drugs, medicaments and biological substances; Z91.018 Allergy to other foods; F17.210 Nicotine dependence, cigarettes, uncomplicated
CPT/HCPCS: 96372; 99282; A9270-GY; J1885

== ENCOUNTER 2019-11-18 00:54 | Emergency (ER) | payer OTHER ==
[2019-11-18] MEDS ORDERED: diPHENhydraMINE IV* 50 MG/ML 1 ml VIAL (BENADRYL) SLOW PUSH ONE (01:43)
[2019-11-18] MEDS ORDERED: NS 0.9% 1000 ML** 1,000 ML IV ONE (01:43)
[2019-11-18] MEDS ORDERED: Ketorolac INJ* 30 MG/ML 1 ML VIAL IV PUSH ONE (01:43)
[2019-11-18] MEDS ORDERED: PROCHLORPERAZINE INJ 5 MG/ML 2 ML VIAL IV ONE (01:43)
[2019-11-18] MEDS ORDERED: Pantoprazole IV* 40 MG IV ONE (01:43)
[2019-11-18] MEDS ORDERED: Lidocaine 2% VISCOUS* 15 ML UDC PO ONE (01:44)
[2019-11-18] MEDS ORDERED: Al Hydrox/Mg Hydrox/Simet LIQ* 30 ML UDC PO ONE (01:44)
[2019-11-18 01:46] LABS: Urine Appearance Cloudy; Urine Color Yellow
[2019-11-18 01:47] LABS: Urine Ketones Negative (Negative); Urine Protein 1+(30 mg/dL) (Negative); Urine Urobilinogen Negative (Negative)
[2019-11-18 01:48] LABS: Urine Blood Negative (Negative)
[2019-11-18 01:49] LABS: Urine Bilirubin Negative (Negative); Urine Glucose Negative (Negative); Urine Nitrite Positive (Negative)
--- NOTE | 2019-11-18 01:55 | ED ---
GI/ HPI - HPI Summary HPI Summary: 29 year old female presents with headache and epigastric pain for the past couple days. She states she has had a migraines for the past 4 days. She has a history of migraines. States her migraines do not normally last this long. She states that she feels dizzy. This is not the worst headache of her life. She took sumatriptan without relief. She states she has also had nausea vomiting. She denies any blood in her stool. No dark tarry stool. she denies any diarrhea. She does have family history of gastric ulcers but no personal history. No previous abdominal surgeries. No fevers. No sore throat or sinus congestion. She denies any urinary symptoms. She tried some Reglan with no relief. She did have an the last week in Oct. She denies any vaginal bleeding. - History of Current Complaint Chief Complaint: EDAbdPain Time Seen by Provider: 11/18/19 00:58 Stated Complaint: ABD PAIN PER PT Pain Intensity: 5 - Additional Pertinent History Primary Care Physician: ARACELI - Allergy/Home Medications Allergies/Adverse Reactions: Allergies Allergy/AdvReac Type Severity Reaction Status Date / Time Adhesive Tape Allergy Rash Verified 10/20/18 20:46 banana Allergy GI Upset Verified 10/20/18 20:46 Home Medications: Home Medications Sertraline* [Zoloft*] 200 mg PO DAILY 04/09/13 [History Confirmed 09/22/18] Amphetamine MIXED SALT TAB* [Adderall TAB*] 30 mg PO BID PRN 02/20/16 [History Confirmed 09/22/18] Naproxen TAB* [Naprosyn 250 mg TAB*] 500 mg PO BID PRN 02/25/18 [History Confirmed 09/22/18] Norgestimate-Ethinyl Estradiol [Tri-Sprintec 0.18/0.215/0.25 mg-35 Mcg] 1 tab PO DAILY 09/22/18 [History Confirmed 09/22/18] Penicillin VK TAB* [Penicillin VK 250 mg Tab*] 500 mg PO QID #40 tab 09/22/18 [ Rx] Varenicline (NF) [Chantix 1 MG TAB (NF)] 1 mg PO DAILY 09/22/18 [History Confirmed 09/22/18] oxyCODONE/Acetamin 5/325 MG* [Percocet 5/325 TAB*] 2 tab PO Q4H PRN #10 tab MDD 6 tabs 09/22/18 [Rx] PMH/Surg Hx/FS Hx/Imm Hx Endocrine/Hematology History: Denies: Hx Diabetes Cardiovascular History: Denies: Hx Congestive Heart Failure GI History: Denies: Other GI Disorders History: Reports: Hx Kidney Infection Denies: Hx Renal Disease, Other Problems/Disorders Musculoskeletal History: Reports: Hx Arthritis, Hx Back Problems, Other Musculoskeletal History - chronic pain Sensory History: Reports: Hx Contacts or Glasses Opthamlomology History: Reports: Hx Contacts or Glasses Neurological History: Reports: Other Neuro Impairments/Disorders - H/O SCIATICA Psychiatric History: Reports: Hx Anxiety, Hx Eating Disorder - Anorexia, Hx Depression, Hx of Violent Episodes Against Others, Other Psychiatric Issues/ Disorders - ADD - Surgical History Surgery Procedure, Year, and Place: none - Immunization History Date of Tetanus Vaccine: Up to date Date of Influenza Vaccine: None Infectious Disease History: No Infectious Disease History: Denies: Traveled Outside the [place] in Last 30 Days - Family History Known Family History: Negative: Seizure Disorder - Social History Alcohol Use: None Hx Substance Use: No Substance Use Type: Reports: None Hx Tobacco Use: Yes Smoking Status (MU): Light Every Day Tobacco Smoker Type: Cigarettes Have You Smoked in the Last Year: Yes Review of Systems Negative: Fever Negative: Chest Pain Positive: Abdominal Pain, Vomiting, Nausea. Negative: Diarrhea Positive: Headache All Other Systems Reviewed And Are Negative: Yes Physical Exam Triage Information Reviewed: Yes Vital Signs On Initial Exam: Initial Vitals Temp Pulse Resp BP Pulse Ox 97.4 F 116 20 125/82 95 11/18/19 00:56 11/18/19 00:56 11/18/19 00:56 11/18/19 00:56 11/18/19 00:56 Vital Signs Reviewed: Yes Appearance: Positive: Well-Appearing Skin: Positive: Warm, Dry Head/Face: Positive: Normal Head/Face Inspection Eyes: Positive: Normal, Conjunctiva Clear ENT: Positive: Pharynx normal Respiratory/Lung Sounds: Positive: Clear to Auscultation, Breath Sounds Present Cardiovascular: Positive: Normal, RRR Abdomen Description: Positive: Soft, Other: - tenderness LUQ Bowel Sounds: Positive: Present Musculoskeletal: Positive: Normal Neurological: Positive: Sensory/Motor Intact, Alert, Oriented to Person Place, Time, CN Intact II-III Psychiatric: Positive: Normal Procedures - Sedation Patient Received Moderate/Deep Sedation with Procedure: No Diagnostics - Vital Signs Vital Signs Temp Pulse Resp BP Pulse Ox 11/18/19 00:56 97.4 F 116 20 125/82 95 - Laboratory Lab Statement: Any lab studies that have been ordered have been reviewed, and results considered in the medical decision making process. Re-Evaluation - Re-Evaluation First Eval Re-Evaluation Time: 02:41 Change: Improved Comment: abdominal pain and headache improved GIGU Course/Dx - Course Course Of Treatment: 29 year old female presents with headache and epigastric pain for the past couple days. She states she has had a migraines for the past 4 days. She has a history of migraines. States her migraines do not normally last this long. She states that she feels dizzy. This is not the worst headache of her life. She took sumatriptan without relief. She states she has also had nausea vomiting. She denies any blood in her stool. No dark tarry stool. she denies any diarrhea. She does have family history of gastric ulcers but no personal history. No previous abdominal surgeries. No fevers. No sore throat or sinus congestion. She denies any urinary symptoms. She tried some Reglan with no relief. On exam has normal neuro exam. Tenderness in left upper quadrant. feeling better after compazine, benadryl, and toradol and GI cocktail. patient will be signed out to dr morrell pending reevulation and lab work. - Diagnoses Differential Diagnoses - Female: Gastritis, Gastroenteritis (Viral), Gastroenteritis (Bacterial) Provider Diagnoses: Headache, Vomiting, Abdominal pain Discharge ED - Sign-Out/Discharge Documenting (check all that apply): Sign-Out Patient Signing out patient TO: Vamshi Morrell - Discharge Plan Referrals: Andres Morales MD [Primary Care Provider] -
[2019-11-18 02:47] LABS: ABS Lymphocytes 2.4 10^3/ul (1.0-4.8); ABS Monocytes 0.7 10^3/ul (0-0.8); ABS Neutrophils 5.4 10^3/ul (1.5-7.7); Eosinophil % 0.5 %; Hematocrit 41 % (35-47); Hemoglobin 14.2 g/dL (12.0-16.0); Lymphocyte % 28.5 %; Mean Corpuscular HGB Conc 34 g/dL (31-36); Mean Corpuscular Hemoglobin 32 pg (27-31); Mean Corpuscular Volume 94 fL (80-97); Mean Platelet Volume 7.1 fL (7.4-10.4); Nucleated Red Blood Cells % 0.1; Platelet Count 376 10^3/uL (150-450); Red Blood Count 4.41 10^6 /uL (3.70-4.87); Red Cell Distribution Width 13 % (10-15); White Blood Count 8.5 10^3/uL (3.5-10.8)
[2019-11-18 02:59] LABS: ALT 10 U/L (7-52); AST 13 U/L (13-39); Albumin 4.2 g/dL (3.2-5.2); Albumin/Globulin Ratio 1.6 (1-3); Alkaline Phosphatase 59 U/L (34-104); Anion Gap 8 mmol/L (2-11); BUN/Creatinine Ratio 22.1 (8-20); Blood Urea Nitrogen 17 mg/dL (6-24); C Reactive Protein < 1.00 mg/L (<8.01); CO2 Carbon Dioxide 27 mmol/L (22-32); Calcium 9.3 mg/dL (8.6-10.3); Chloride 102 mmol/L (101-111); EGFR African American 107.2 (>60); EGFR Non-African American 88.6 (>60); Globulin 2.7 g/dL (2-4); Glucose 104 mg/dL (70-100); Potassium 3.6 mmol/L (3.5-5.0); Sodium 137 mmol/L (135-145); Total Protein 6.9 g/dL (6.4-8.9)
[2019-11-18 03:05] LABS: HCG Pregnancy 588.88 mIU/mL
--- NOTE | 2019-11-18 04:16 | ED ---
Progress - Progress Note Progress Note: 29 y/o F signed out from Yennidarlene Thrasher upon shift change 11/18/2019 0230 pending lab work and reevaluation. Re-Evaluation - Re-Evaluation First Eval Re-Evaluation Time: 03:50 Change: Improved Course/Dx - Course Course Of Treatment: Bloodwork results with no significant abnormalities. Urinalysis results with no significant abnormalities. Patient will be discharged home with follow up from her primary care provider if needed. She was instructed to return to Emergency Department for new or worsening symptoms. Patient understands and is agreeable to this plan. - Diagnoses Provider Diagnoses: Headache, Vomiting, Abdominal pain Discharge ED - Sign-Out/Discharge Documenting (check all that apply): Patient Departure - Discharge Plan Condition: Improved Disposition: HOME Patient Education Materials: Migraine Headache (ED), Acute Abdominal Pain (ED) Referrals: Andres Morales MD [Primary Care Provider] - If Needed Additional Instructions: The blood and urine tests we sent tonight look ok, we do not have any evidence of a serious problem in your abdomen. Abdominal pain can accompany migraines, this is the most likely explanation for it. - Billing Disposition and Condition Condition: IMPROVED Disposition: Home - Attestation Statements Document Initiated by Octavioibe: Yes Documenting Scribe: Sanjuanita Rosales Provider For Whom Jorge is Documenting (Include Credential): Vamshi Malhotra MD Scribe Attestation: Sanjuanita Perez, scribed for Vamshi Malhotra MD on 11/22/19 at 0614. Scribe Documentation Reviewed: Yes Provider Attestation: The documentation as recorded by the Sanjuanita guallpa accurately reflects the service I personally performed and the decisions made by me, Vamshi Malhotra MD Status of Scribe Document: Viewed
[2019-11-18 04:47] VITALS: BP 96/58
== END 2019-11-18 04:30 | disposition home or self-care (01) ==
LOC: ED 00:54
DX: R51 Headache (principal); R11.10 Vomiting, unspecified; R10.13 Epigastric pain; F41.9 Anxiety disorder, unspecified; F32.9 Major depressive disorder, single episode, unspecified; F90.9 Attention-deficit hyperactivity disorder, unspecified type; F17.210 Nicotine dependence, cigarettes, uncomplicated; Z79.899 Other long term (current) drug therapy
CPT/HCPCS: 36415; 80053; 81003; 81015; 83690; 83735; 84702; 85025; 86140; 87086; 96361; 96374; 96375; 99284; A9270-GY; J0780; J1200; J1885